=== PATIENT | male | born 1940 | race Hispanic/Latino ===

== ENCOUNTER 2017-07-02 16:30 | Inpatient (IN) | payer MEDICARE ==
--- NOTE | 2017-07-02 17:12 | Emergency Department Report ---
Chief Complaint: Dyspnea/Respdistress Stated Complaint: DIFFICULTY BREATHING Time Seen by Provider: 07/02/17 17:07 - HPI History of Present Illness: Patient with H/O CHF, HTN and DM presents to ED with worsening SOB and bilateral LE edema; scheduled for outpatient Cardiac catheterization tomorrow but feels too bad to go - ROS Review of Systems: Negative except for those stated in HPI - Exam Vital Signs: Vital Signs 07/02/17 16:38 Temperature 98.5 F Pulse Rate 98 H Respiratory 20 Rate Blood Pressure 115/73 O2 Sat by Pulse 97 Oximetry Physical Exam: NAD Bilateral LE pitting edema MSE screening note: Focused history and physical exam performed. Due to findings the following was ordered: CXR, EKG, blood work, urine Patient to be seen by provider in Main ED ED Disposition for MSE Condition: Stable
[2017-07-02 17:34] LABS: Basophils % (Auto) 0.8 % (0.0-1.8); Eosinophils % (Auto) 1.6 % (0.0-4.3); Hemoglobin 9.4 gm/dl (11.8-15.2); Mean Corpuscular HGB Conc 31 % (32-34); Mean Corpuscular Hemoglobin 26 pg (28-32); Mean Corpuscular Volume 84 fl (84-94); Platelet Count 386 K/mm3 (140-440); Red Blood Count 3.58 M/mm3 (3.65-5.03); Red Cell Distribution Width 18.5 % (13.2-15.2); White Blood Count 6.6 K/mm3 (4.5-11.0)
[2017-07-02 17:44] LABS: Anion Gap 17 mmol/L; BUN/Creatinine Ratio 34; Blood Urea Nitrogen 34 mg/dL (9-20); Calcium 8.8 mg/dL (8.4-10.2); Carbon Dioxide 24 mmol/L (22-30); Chloride 101.5 mmol/L (98-107); Glucose 279 mg/dL (75-100); Potassium 3.9 mmol/L (3.6-5.0); Sodium 139 mmol/L (137-145)
[2017-07-02 22:49] LABS: Bilirubin,Urine NEG (Negative); Blood,Urine NEG (Negative); Ketones,Urine NEG (Negative); Leukocyte Esterase,Urine NEG (Negative); Mucus,Urine FEW /HPF; Nitrite,Urine NEG (Negative)
[2017-07-02] MEDS ORDERED: LASIX IV ONE (23:17)
[2017-07-02] MEDS ORDERED: NITRO-BID 2% TP ONE (23:17)
--- NOTE | 2017-07-02 23:22 | Emergency Department Report ---
HPI - General Chief Complaint: Dyspnea/Respdistress Time Seen by Provider: 07/02/17 17:07 - HPI HPI: Room 25 The patient is a 77-year-old male presented with a chief complaint of shortness of breath and chest tightness. The patient states for the past 4:00 3 months visit intermittent worsening shortness of breath. The patient states his shortness of breath worsened this evening. Patient missed intermittent chest tightness since April and states it lasts several minutes. The patient states his last episode of chest night tightness occurred earlier today. Patient does admit to diaphoresis and nausea without vomiting associated with this chest tightness. The patient is scheduled to have a cardiac catheterization in the morning [facility]. The patient states last time he had a cardiac catheterization was approximately 15 years ago. Location: Lungs, chest Duration: Intermittent since April Quality: Tightness, shortness of breath Severity: Moderate Modifying factors: [see above] Context: [see above] Mode of transportation: [not driving] ED Past Medical Hx - Past Medical History Hx Hypertension: Yes Hx Congestive Heart Failure: Yes Hx Diabetes: Yes - Surgical History Additional Surgical History: left collar fx, herniorrhaphy, right knee surgery - Social History Smoking Status: Never Smoker Substance Use Type: None (denies illicit drug use) ED Review of Systems ROS: Stated complaint: DIFFICULTY BREATHING Other details as noted in HPI Constitutional: diaphoresis Respiratory: shortness of breath Cardiovascular: chest pain (tightness) Gastrointestinal: nausea. denies: vomiting Skin: other (bilateral lower extremity edema) Physical Exam - Physical Exam Vital Signs: Vital Signs 07/02/17 07/02/17 07/02/17 16:38 21:07 21:56 Temperature 98.5 F 97.6 F 98 F Pulse Rate 98 H 98 H 100 H Respiratory 20 18 24 Rate Blood Pressure 115/73 149/98 Blood Pressure 137/95 [Left] O2 Sat by Pulse 97 95 96 Oximetry Physical Exam: GENERAL: The patient is well-developed well-nourished male lying on stretcher not appearing to be in acute distress HEENT: Normocephalic. Atraumatic. Extraocular motions are intact. Patient has moist mucous membranes. NECK: Supple. Trachea midline CHEST/LUNGS: Coarse breath sounds at the bases. No crackles. There is no respiratory distress noted. HEART/CARDIOVASCULAR: Regular. There is no tachycardia. There is no gallop rub or murmur. ABDOMEN: Abdomen is soft, nontender. Patient has normal bowel sounds. There is no abdominal distention. SKIN: There is no rash. There is 2-3+ bilateral lower extremity pitting edema. There is no diaphoresis. NEURO: The patient is awake, alert, and oriented. The patient is cooperative. The patient has normal speech MUSCULOSKELETAL: There is no evidence of acute injury. ED Course Vital Signs 07/02/17 07/02/17 07/02/17 16:38 21:07 21:56 Temperature 98.5 F 97.6 F 98 F Pulse Rate 98 H 98 H 100 H Respiratory 20 18 24 Rate Blood Pressure 115/73 149/98 Blood Pressure 137/95 [Left] O2 Sat by Pulse 97 95 96 Oximetry ED Medical Decision Making - Lab Data Result diagrams: 07/02/17 17:04 07/02/17 17:04 Laboratory Tests 07/02/17 07/02/17 07/02/17 17:04 17:04 17:04 WBC 6.6 RBC 3.58 L Hgb 9.4 L Hct 30.0 L MCV 84 MCH 26 L MCHC 31 L RDW 18.5 H Plt Count 386 Lymph % (Auto) 15.4 [place] % (Auto) 10.7 H Eos % (Auto) 1.6 Baso % (Auto) 0.8 Lymph # 1.0 L [place] # 0.7 Eos # 0.1 Baso # 0.1 Seg Neutrophils % 71.5 H Seg Neutrophils # 4.7 Sodium 139 Potassium 3.9 Chloride 101.5 Carbon Dioxide 24 Anion Gap 17 BUN 34 H Creatinine 1.0 Estimated GFR > 60 BUN/Creatinine Ratio 34 Glucose 279 H Calcium 8.8 NT-Pro-B Natriuret Pep 4105 H Urine Color Urine Turbidity Urine pH Ur Specific [place] Urine Protein Urine Glucose (UA) Urine Ketones Urine Blood Urine Nitrite Urine Bilirubin Urine Urobilinogen Ur Leukocyte Esterase Urine WBC (Auto) Urine RBC (Auto) U Epithel Cells (Auto) Urine Mucus 07/02/17 22:24 WBC RBC Hgb Hct MCV MCH MCHC RDW Plt Count Lymph % (Auto) [place] % (Auto) Eos % (Auto) Baso % (Auto) Lymph # [place] # Eos # Baso # Seg Neutrophils % Seg Neutrophils # Sodium Potassium Chloride Carbon Dioxide Anion Gap BUN Creatinine Estimated GFR BUN/Creatinine Ratio Glucose Calcium NT-Pro-B Natriuret Pep Urine Color Yellow Urine Turbidity Clear Urine pH 5.0 Ur Specific [place] 1.028 Urine Protein 100 mg/dl Urine Glucose (UA) >=500 Urine Ketones Neg Urine Blood Neg Urine Nitrite Neg Urine Bilirubin Neg Urine Urobilinogen 2.0 Ur Leukocyte Esterase Neg Urine WBC (Auto) 4.0 Urine RBC (Auto) 3.0 U Epithel Cells (Auto) 1.0 Urine Mucus Few - EKG Data -: EKG Interpreted by Me EKG shows normal: sinus rhythm Rate: normal - EKG Data When compared to previous EKG there are: previous EKG unavailable Interpretation: other (no ischemic changes seen) - Radiology Data Radiology results: image reviewed (chest x-ray) interpreted by me: Chest x-ray-no focal infiltrates, no pneumothorax - Differential Diagnosis ACS, CHF exacerbation, pericarditis, GERD Critical care attestation.: If time is entered above; I have spent that time in minutes in the direct care of this critically ill patient, excluding procedure time. ED Disposition Clinical Impression: Chest tightness, Shortness of breath, CHF exacerbation Disposition: 09 OP ADMIT IP TO THIS HOSP Is pt being admited?: Yes Does the pt Need Aspirin: Yes Condition: Fair Referrals: PRIMARY CARE, [Primary Care Provider] - 3-5 Days Time of Disposition: 23:28 (hospitalist paged. Dr. Sapphire De Leon)
[2017-07-02] MEDS ORDERED: ASPIRIN PO ONE (23:23)
[2017-07-03] MEDS ORDERED: ZOFRAN IV PRN (00:35)
[2017-07-03] MEDS ORDERED: DULCOLAX PR PRN (00:35)
[2017-07-03] MEDS ORDERED: MILK OF MAGNESIA PO PRN (00:35)
[2017-07-03] MEDS ORDERED: TYLENOL PO PRN (00:35)
[2017-07-03] MEDS ORDERED: MORPHINE IV PRN (00:35)
--- NOTE | 2017-07-03 00:42 | History and Physical Report ---
History of Present Illness Date of examination: 07/03/17 History of present illness: 77-year-old man with a history of hypertension, diabetes, CHF comes emergency room with complaints of shortness of breath, dyspnea on exertion, orthopnea and lower extremity edema 4 days. Also complaining of chest pain, located in the epigastric area, described as tightness, intermittent in nature, every 30 minutes, intensity 5/10, no radiation, cannot identify exacerbating or relieving factors. Patient is scheduled for cardiac cath today Review Of Systems: Constitutional: no weight loss Ears, eyes, nose, mouth and throat: no nasal congestion, no nasal discharge, no sinus pressure, blurry vision, diplopia Neck: No neck pain or rigidity. Cardiovascular: no palpitations Respiratory: No cough Gastrointestinal:no abdominal pain, hematochezia Genitourinary : no dysuria, frequency , hematuria Musculoskeletal: no muscle ache Integumentary: no rash, no pruritis Neurological: no parathesias, focal weakness Endocrine: no cold or heat intolerance, no polyuria or polydipsia Hematologic/Lymphatic: no easy bruising, no easy bleeding, no gland swelling Allergic/Immunologic: no urticaria, no angioedema. PAST MEDICAL HISTORY:hypertension, diabetes, CHF PAST SURGICAL HISTORY: Hernia repair, knee surgery FAMILY HISTORY: Hypertension SOCIAL HISTORY: Denies alcohol, tobacco, drugs Medications and Allergies Allergies Allergy/AdvReac Type Severity Reaction Status Date / Time No Known Allergies Allergy Unverified 07/02/17 16:42 Home Medications Medication Instructions Recorded Confirmed Last Taken Type Aspirin BABY CHEW TAB 1 tab PO DAILY 07/03/17 07/03/17 Unknown History AtorvaSTATin 40 mg PO DAILY 07/03/17 07/03/17 Unknown History Cholecalciferol Vit D3 2,000 unit PO DAILY 07/03/17 07/03/17 Unknown History Finasteride 5 mg PO DAILY 07/03/17 07/03/17 Unknown History Glipizide 10 mg PO BID 07/03/17 07/03/17 Unknown History Lisinopril 10 mg PO DAILY 07/03/17 07/03/17 Unknown History Metoprolol Xl 25 mg PO DAILY 07/03/17 07/03/17 Unknown History Potassium Chloride 20 meq PO DAILY 07/03/17 07/03/17 Unknown History Zantac 150 MG TAB 1 tab PO BID 07/03/17 07/03/17 Unknown History metFORMIN XR 1,000 mg PO BID 07/03/17 07/03/17 Unknown History Furosemide [Lasix] 20 mg PO QDAY #30 tablet 07/07/17 Unknown Rx Potassium Chloride 5 meq PO QDAY #15 capsule.er 07/07/17 Unknown Rx Exam - Physical Exam Narrative exam: Gen. appearance: Patient lying in bed in no acute distress HEENT: Normocephalic/atraumatic, pupils equal round reactive to light, extra alkaline movement intact, no scleral icterus, no JVD or thyromegaly or nodule, neck is supple, mucous membrane moist, no erythema or exudate Heart: S1-S2, regular rate and rhythm Lungs: Crackles bilateral breathing comfortable Abdomen: Positive bowel sounds, nontender, nondistended, no organomegaly Extremities: + edema up to knees, cyanosis, clubbing Neuro:: Oriented 3 , cranial nerves II-12 intact, speech, motor intact Skin: No rash, nodules, warm dry - Constitutional Vitals: Temp Pulse Resp BP Pulse Ox 98 F 95 H 20 140/86 100 07/02/17 21:56 07/02/17 23:30 07/02/17 23:49 07/02/17 23:30 07/02/17 23:49 Results - Labs CBC & Chem 7: 07/04/17 07:05 07/06/17 05:34 Labs: Abnormal lab results 07/02/17 07/02/17 07/02/17 Range/Units 17:04 17:04 17:04 RBC 3.58 L (3.65-5.03) M/mm3 Hgb 9.4 L (11.8-15.2) gm/dl Hct 30.0 L (35.5-45.6) % MCH 26 L (28-32) pg MCHC 31 L (32-34) % RDW 18.5 H (13.2-15.2) % [place] % (Auto) 10.7 H (0.0-7.3) % Lymph # 1.0 L (1.2-5.4) K/mm3 Seg Neutrophils % 71.5 H (40.0-70.0) % BUN 34 H (9-20) mg/dL Glucose 279 H (75-100) mg/dL NT-Pro-B Natriuret Pep 4105 H (0-900) pg/mL - Imaging and Cardiology EKG: image reviewed Chest x-ray: image reviewed Assessment and Plan Assessment Acute on chronic heart failure, probably diastolic Chest pain Hypertension Diabetes Plan Admit to medicine Start IV Lasix Beta ronald, DINA inhibitor, aspirin Check cardiac enzymes, echo, consult cardiology. Monitor I's and O's, daily weights Patient scheduled for cardiac cath today check initiate insulin signs scale DVT prophylaxis
[2017-07-03 01:25] LABS: Creatine Kinase MB 2.3 ng/mL (0.0-4.0)
[2017-07-03 01:26] LABS: Creatine Kinase 62 units/L (55-170)
[2017-07-03] MEDS ORDERED: D50W (25GM) Vial IV PRN (04:56)
[2017-07-03] MEDS: LASIX IV SCH ×2 (05:44→17:44)
[2017-07-03 06:42] LABS: INR 1.06 (0.87-1.13)
[2017-07-03 06:43] LABS: Partial Thromboplastin Time 31.5 Sec. (24.2-36.6)
[2017-07-03 06:57] LABS: Creatine Kinase MB 2.3 ng/mL (0.0-4.0)
[2017-07-03] MEDS ORDERED: NACL 0.9% 500 ML IV SCH (07:00)
[2017-07-03] MEDS ORDERED: HEPARIN 10,000 UNITS/10 ML ONE (07:35)
[2017-07-03] MEDS ORDERED: CALAN ONE (07:35)
[2017-07-03] MEDS ORDERED: HEPARIN/NS 5000 UNIT/500ML(CATH LAB) 1,000 ML IR ONE (07:35)
[2017-07-03] MEDS ORDERED: VERSED ONE (07:35)
[2017-07-03] MEDS ORDERED: XYLOCAINE 2% INFILTRATI ONE (07:35)
[2017-07-03] MEDS ORDERED: SUBLIMAZE ONE (07:36)
[2017-07-03] MEDS ORDERED: NITROGLYCERIN SYRINGE 3 ML ONE (07:38)
--- NOTE | 2017-07-03 08:05 | Prelim Cardiac Cath Report ---
Preliminary Cath Report - Other Findings Estimated blood loss: none Dominance: right Estimated Ejection Fraction: 40 LV Contractility: mild global HK EF 40% Coronary Anatomy: %0% mid LAD stenosis otherwise no significant disease in Right dominant system LVEDP elevated 28 mmHg. EF 40% global hypokinesis Plan Pulm evaluation for shortness of breath Medical therapy for non-ischemic CMP, HTN. Post Diagnosis: Non-obstructive CAD, Non-ischemic CMP. Recommendations: medical therapy (recommend pulm evaluation)
[2017-07-03] MEDS: NOVOLOG SUB-Q SCH ×4 (09:45→22:30)
[2017-07-03] MEDS ORDERED: COREG PO SCH (10:00)
[2017-07-03] MEDS ORDERED: ZESTRIL PO SCH (10:00)
[2017-07-03] MEDS: HALFPRIN EC PO SCH (10:31)
[2017-07-03] MEDS: LOVENOX SUB-Q SCH (10:31)
[2017-07-03] MEDS: VITAMIN D3 PO SCH (10:32)
[2017-07-03] MEDS: PROSCAR PO SCH (10:33)
[2017-07-03] MEDS: PEPCID PO SCH ×2 (10:33→22:35)
[2017-07-03] MEDS: ZESTRIL PO SCH (10:34)
[2017-07-03] MEDS: TOPROL XL PO SCH (10:34)
--- NOTE | 2017-07-03 11:21 | XRay Report ---
CHEST TWO VIEWS: 07/02/17 16:30:00 CLINICAL: Shortness of breath. COMPARISON: None FINDINGS: Cardiomegaly and mild central vascular congestion. Mild nonspecific prominent bilateral predominantly lower lobe interstitial opacities. Mild blunting of the costophrenic angles. The bones and soft tissues are normal. IMPRESSION: CHF with mild interstitial pulmonary edema until proven otherwise.
[2017-07-03] MEDS: DUONEB *Not for PRN Use IH SCH ×2 (17:32→20:26)
--- NOTE | 2017-07-03 17:54 | Event Note ---
Date: 07/03/17 Patient was seen and evaluated, had episode of shortness of breath that resolved. By the time I saw him he was stable. Cardiac cath was done and negative for obstructive coronary artery disease. Continue management per H&P.
--- NOTE | 2017-07-03 19:10 | Event Note ---
Date: 07/03/[address] Diaz thank you for asking us to participate in the care of this patient. Full consultation dictated.Consultation dictation number: [id number]. Impression. 1. Acute exacerbation of CHF 2. Shortness of breath 3. Chest tightness. 4. Hypertension 5.. Diabetes. PLAN: 1.ABGs on room air. 2.O2 2 litres via nasal canula. 3.Albuterol/atrovent aerosol treatments q 6 hours. 4.Continue S/C Lovenox. 5. Venous doppler studies of legs. 6. If cardiac work up is negative, May get V/Q scan 7. PFTs as out patient. )
[2017-07-04] MEDS ORDERED: PROVENTIL IH PRN (00:21)
[2017-07-04] MEDS: LASIX IV SCH ×2 (05:21→17:29)
[2017-07-04 07:40] LABS: Basophils % (Auto) 1.1 % (0.0-1.8); Hematocrit 30.5 % (35.5-45.6); Hemoglobin 9.9 gm/dl (11.8-15.2); Mean Corpuscular HGB Conc 32 % (32-34); Mean Corpuscular Hemoglobin 27 pg (28-32); Mean Corpuscular Volume 84 fl (84-94); Platelet Count 415 K/mm3 (140-440); Red Blood Count 3.64 M/mm3 (3.65-5.03); Red Cell Distribution Width 18.1 % (13.2-15.2); White Blood Count 6.6 K/mm3 (4.5-11.0)
[2017-07-04 07:51] LABS: Anion Gap 18 mmol/L; BUN/Creatinine Ratio 29; Blood Urea Nitrogen 26 mg/dL (9-20); Calcium 8.5 mg/dL (8.4-10.2); Carbon Dioxide 30 mmol/L (22-30); Glucose 264 mg/dL (75-100); Potassium 3.6 mmol/L (3.6-5.0); Sodium 143 mmol/L (137-145)
[2017-07-04] MEDS: DUONEB *Not for PRN Use IH SCH (08:27)
[2017-07-04] MEDS: ZESTRIL PO SCH (09:51)
[2017-07-04] MEDS: HALFPRIN EC PO SCH (09:51)
[2017-07-04] MEDS: PROSCAR PO SCH (09:51)
[2017-07-04] MEDS: LOVENOX SUB-Q SCH (09:52)
[2017-07-04] MEDS: TOPROL XL PO SCH (09:52)
[2017-07-04] MEDS: PEPCID PO SCH ×2 (09:52→22:26)
[2017-07-04] MEDS: VITAMIN D3 PO SCH (09:53)
[2017-07-04] MEDS: NOVOLOG SUB-Q SCH ×4 (09:53→22:25)
--- NOTE | 2017-07-04 12:04 | Progress Note ---
Assessment and Plan Acute systolic heart failure [facility]: no significant CAD, EF 40% Hypertension Diabetes mellitus Continue medical therapy for systolic heart failure. Sodium/fluid restriction. Daily weight. Subjective Date of service: 07/04/17 Interval history: Shortness of breath continues. Objective Vital Signs Temp Pulse Pulse Resp Resp BP Pulse Ox 07/04/17 11:44 95 07/04/17 09:52 87 114/74 07/04/17 09:51 87 114/74 07/04/17 08:29 95 07/04/17 08:28 86 16 07/04/17 04:44 97.5 F L 95 H 20 122/84 89 07/04/17 00:43 97.0 F L 92 H 24 132/88 89 07/03/17 20:35 91 H 16 07/03/17 20:29 97 07/03/17 20:28 91 H 16 07/03/17 20:11 98.2 F 84 20 126/84 98 07/03/17 20:00 103 H 07/03/17 17:17 98.6 F 90 18 125/82 96 07/03/17 12:04 98.3 F 91 H 18 132/86 99 - Physical Examination General: No Apparent Distress Cardiac: Positive: Reg Rate and Rhythm - Labs and Meds CBC 07/04/17 Range/Units 07:05 WBC 6.6 (4.5-11.0) K/mm3 RBC 3.64 L (3.65-5.03) M/mm3 Hgb 9.9 L (11.8-15.2) gm/dl Hct 30.5 L (35.5-45.6) % Plt Count 415 (140-440) K/mm3 Lymph # 1.4 (1.2-5.4) K/mm3 [place] # 0.9 H (0.0-0.8) K/mm3 Eos # 0.1 (0.0-0.4) K/mm3 Baso # 0.1 (0.0-0.1) K/mm3 Comprehensive Metabolic Panel 07/04/17 Range/Units 07:05 Sodium 143 (137-145) mmol/L Potassium 3.6 (3.6-5.0) mmol/L Chloride 99.0 (98-107) mmol/L Carbon Dioxide 30 (22-30) mmol/L BUN 26 H (9-20) mg/dL Creatinine 0.9 (0.8-1.5) mg/dL Glucose 264 H (75-100) mg/dL Calcium 8.5 (8.4-10.2) mg/dL - Imaging and Cardiology EKG: image reviewed
[2017-07-04] MEDS ORDERED: NON-FORMULARY (Glipizide 10 MG) PO SCH (12:15)
[2017-07-04] MEDS: GLUCOTROL PO SCH ×2 (13:07→17:30)
[2017-07-04] MEDS ORDERED: ZAROXOLYN PO ONE (14:00)
[2017-07-04] MEDS ORDERED: K-DUR PO ONE (14:00)
--- NOTE | 2017-07-04 15:51 | Progress Note ---
Assessment and Plan Assessment and plan: Acute on chronic CHF exacerbation -Cardiac cath was done, clean coronaries, ejection fraction of 40% -Patient is still fluid overloaded, continue IV diuresis, continue CHF medications, add torsemide - Cardiology consult appreciated DM type II uncontrolled - Continue on sliding scale insulin, blood glucose is still uncontrolled with home dose of glipizide Hypertension - well controlled with current regimen Shortness of breath - Pulmonary consulted - Recommended VQ scan if cardiac workup is negative DVT prophylaxis - Heparin Disposition - Continue inpatient care. History Interval history: Patient was seen and evaluated this morning, shortness of breath is getting better. Hospitalist Physical - Physical exam Narrative exam: Not in cardiopulmonary distress. The patient appeared well nourished and normally developed. Vital signs as documented. Head exam is unremarkable. No scleral icterus . Neck is without jugular venous distension, thyromegaly, or carotid bruits. Lungs are clear to auscultation. Cardiac exam reveals regular rate and Rhythm. First and second heart sounds normal. No murmurs, rubs or gallops. Abdominal exam reveals normal bowel sounds, no masses, no organomegaly and no aortic enlargement. Extremities +2 pedal and pretibial edema. SCHEDULING MANAGER: Alert and oriented 3. No focal weakness. - Constitutional Vitals: Temp Pulse Resp BP Pulse Ox 98.6 F 98 H 18 135/101 97 07/04/17 12:13 07/04/17 12:13 07/04/17 12:13 07/04/17 12:13 07/04/17 12:13 Results - Labs CBC & Chem 7: 07/04/17 07:05 07/04/17 07:05 Labs: Laboratory Last Values WBC 6.6 K/mm3 (4.5-11.0) 07/04/17 07:05 RBC 3.64 M/mm3 (3.65-5.03) L 07/04/17 07:05 Hgb 9.9 gm/dl (11.8-15.2) L 07/04/17 07:05 Hct 30.5 % (35.5-45.6) L 07/04/17 07:05 MCV 84 fl (84-94) 07/04/17 07:05 MCH 27 pg (28-32) L 07/04/17 07:05 MCHC 32 % (32-34) 07/04/17 07:05 RDW 18.1 % (13.2-15.2) H 07/04/17 07:05 Plt Count 415 K/mm3 (140-440) 07/04/17 07:05 Lymph % (Auto) 20.7 % (13.4-35.0) 07/04/17 07:05 [place] % (Auto) 13.0 % (0.0-7.3) H 07/04/17 07:05 Eos % (Auto) 2.0 % (0.0-4.3) 07/04/17 07:05 Baso % (Auto) 1.1 % (0.0-1.8) 07/04/17 07:05 Lymph # 1.4 K/mm3 (1.2-5.4) 07/04/17 07:05 [place] # 0.9 K/mm3 (0.0-0.8) H 07/04/17 07:05 Eos # 0.1 K/mm3 (0.0-0.4) 07/04/17 07:05 Baso # 0.1 K/mm3 (0.0-0.1) 07/04/17 07:05 Seg Neutrophils % 63.2 % (40.0-70.0) 07/04/17 07:05 Seg Neutrophils # 4.2 K/mm3 (1.8-7.7) 07/04/17 07:05 PT 14.3 Sec. (12.2-14.9) 07/03/17 06:16 INR 1.06 (0.87-1.13) 07/03/17 06:16 APTT 31.5 Sec. (24.2-36.6) 07/03/17 06:16 Sodium 143 mmol/L (137-145) 07/04/17 07:05 Potassium 3.6 mmol/L (3.6-5.0) 07/04/17 07:05 Chloride 99.0 mmol/L (98-107) 07/04/17 07:05 Carbon Dioxide 30 mmol/L (22-30) 07/04/17 07:05 Anion Gap 18 mmol/L 07/04/17 07:05 BUN 26 mg/dL (9-20) H 07/04/17 07:05 Creatinine 0.9 mg/dL (0.8-1.5) 07/04/17 07:05 Estimated GFR > 60 ml/min 07/04/17 07:05 BUN/Creatinine Ratio 29 % 07/04/17 07:05 Glucose 264 mg/dL (75-100) H 07/04/17 07:05 POC Glucose 306 (70-105) H 07/04/17 12:16 Calcium 8.5 mg/dL (8.4-10.2) 07/04/17 07:05 Total Creatine Kinase 59 units/L (55-170) 07/03/17 06:16 CK-MB (CK-2) 2.3 ng/mL (0.0-4.0) 07/03/17 06:16 CK-MB (CK-2) Rel Index 3.8 (0-4) 07/03/17 06:16 Troponin T 0.013 ng/mL (0.00-0.029) 07/03/17 06:16 NT-Pro-B Natriuret Pep 4105 pg/mL (0-900) H 07/02/17 17:04 Urine Color Yellow (Yellow) 07/02/17 22:24 Urine Turbidity Clear (Clear) 07/02/17 22:24 Urine pH 5.0 (5.0-7.0) 07/02/17 22:24 Ur Specific [place] 1.028 (1.003-1.030) 07/02/17 22:24 Urine Protein 100 mg/dl mg/dL (Negative) 07/02/17 22:24 Urine Glucose (UA) >=500 mg/dL (Negative) 07/02/17 22:24 Urine Ketones Neg mg/dL (Negative) 07/02/17 22:24 Urine Blood Neg (Negative) 07/02/17 22:24 Urine Nitrite Neg (Negative) 07/02/17 22:24 Urine Bilirubin Neg (Negative) 07/02/17 22:24 Urine Urobilinogen 2.0 mg/dL (<2.0) 07/02/17 22:24 Ur Leukocyte Esterase Neg (Negative) 07/02/17 22:24 Urine WBC (Auto) 4.0 /HPF (0.0-6.0) 07/02/17 22:24 Urine RBC (Auto) 3.0 /HPF (0.0-6.0) 07/02/17 22:24 U Epithel Cells (Auto) 1.0 /HPF (0-13.0) 07/02/17 22:24 Urine Mucus Few /HPF 07/02/17 22:24
--- NOTE | 2017-07-04 21:42 | Progress Note ---
Assessment and Plan Patient alert, awake. Resting on room air. No acute respiratory distress.O2 saturation 98*%. - Patient Problems (1) CHF exacerbation Current Visit: Yes Status: Acute Plan to address problem: Management as per cardiology. (2) Chest tightness Current Visit: Yes Status: Acute Plan to address problem: No complaint of chest pain today. (3) Shortness of breath Current Visit: Yes Status: Acute Plan to address problem: Likely from CHF. Patient says shortness of breath somewhat better today. Patient is on lasix and zestaril. (4) Hypertension Current Visit: Yes Status: Acute Plan to address problem: Management as per primary care. (5) Diabetes Current Visit: Yes Status: Acute Plan to address problem: Management as per primary care. Subjective Date of service: 07/04/17 Interval history: Patient alert, awake. Resting on room air. No acute respiratory distress.O2 saturation 98*%. Objective Vital Signs - 12hr 07/04/17 07/04/17 07/04/17 09:51 09:52 11:44 Temperature Pulse Rate 87 87 Respiratory Rate Blood Pressure 114/74 114/74 O2 Sat by Pulse 95 Oximetry 07/04/17 07/04/17 12:13 16:59 Temperature 98.6 F 98.3 F Pulse Rate 98 H 98 H Respiratory 18 18 Rate Blood Pressure 135/101 140/96 O2 Sat by Pulse 97 98 Oximetry Constitutional: no acute distress, alert Eyes: non-icteric ENT: oropharynx moist Neck: supple, no lymphadenopathy Ascultation: Bilateral: rales Cardiovascular: regular rate and rhythm Gastrointestinal: normoactive bowel sounds, soft, non-tender Integumentary: normal Extremities: no cyanosis, other (Trace edema.No calf tenderness.) Neurologic: normal mental status, non-focal exam, pupils equal and round, CN II- XII normal Psychiatric: depressed CBC and BMP: 07/04/17 07:05 07/04/17 07:05 ABG, PT/INR, D-dimer: PT/INR, D-dimer PT 14.3 Sec. (12.2-14.9) 07/03/17 06:16 INR 1.06 (0.87-1.13) 07/03/17 06:16 Abnormal lab findings: Abnormal Labs 07/02/17 07/02/17 07/02/17 17:04 17:04 17:04 RBC 3.58 L Hgb 9.4 L Hct 30.0 L MCH 26 L MCHC 31 L RDW 18.5 H [place] % (Auto) 10.7 H Lymph # 1.0 L [place] # Seg Neutrophils % 71.5 H BUN 34 H Glucose 279 H POC Glucose NT-Pro-B Natriuret Pep 4105 H 07/03/17 07/03/17 07/03/17 07:15 09:21 12:08 RBC Hgb Hct MCH MCHC RDW [place] % (Auto) Lymph # [place] # Seg Neutrophils % BUN Glucose POC Glucose 228 H 271 H 217 H NT-Pro-B Natriuret Pep 07/03/17 07/03/17 07/04/17 17:22 21:50 07:05 RBC 3.64 L Hgb 9.9 L Hct 30.5 L MCH 27 L MCHC RDW 18.1 H [place] % (Auto) 13.0 H Lymph # [place] # 0.9 H Seg Neutrophils % BUN Glucose POC Glucose 178 H 266 H NT-Pro-B Natriuret Pep 07/04/17 07/04/17 07/04/17 07:05 08:01 12:16 RBC Hgb Hct MCH MCHC RDW [place] % (Auto) Lymph # [place] # Seg Neutrophils % BUN 26 H Glucose 264 H POC Glucose 259 H 306 H NT-Pro-B Natriuret Pep 07/04/17 17:07 RBC Hgb Hct MCH MCHC RDW [place] % (Auto) Lymph # [place] # Seg Neutrophils % BUN Glucose POC Glucose 267 H NT-Pro-B Natriuret Pep Chest x-ray: report reviewed (CHF and Mild interstitial edema.), image reviewed
--- NOTE | 2017-07-04 23:53 | Consultation ---
CONSULTED BY: Chico Diaz MD PLANT ANATOMIST: Richi Marti MD REASON FOR CONSULTATION: Acute exacerbation of shortness of breath, acute exacerbation of CHF and chest tightness. Dr. Diaz, thank you for asking us to participate in the care of this patient. HISTORY OF PRESENT ILLNESS: This is a 77-year-old white male with a history of hypertension, diabetes, and CHF, came to the Emergency Room with a complaint of shortness of breath and orthopnea and lower extremity edema. The patient is also complaining of chest tightness located in the epigastric area and also on the lower chest. The patient denied any fever, chills or nasal congestion or sore throat. The patient denies any history of smoking, alcohol or drug abuse. ALLERGIES: THE PATIENT HAS NO KNOWN DRUG ALLERGIES. He also complained some diaphoresis and nausea, but no vomiting. The patient has a history of cardiac catheterization in the past about 15 years ago and Cardiology is consulted. According to the Emergency Room physician note, they are planning to do the cardiac catheterization soon. The patient's chest x-ray reported CHF with mild interstitial pulmonary edema. The patient is diabetic. His blood sugar is 228. The patient's CPK is not high. Total CPK is 59. CK-MB is 2.3. The patient's CBC: WBC 6.6, hemoglobin 9.4, hematocrit 30 and platelet count is 386,000. The patient's BMP: Sodium 139, potassium 3.9, BUN 34, creatinine 1, glucose 279 and BNP is 4105. PHYSICAL EXAMINATION: GENERAL: The patient resting on room air, O2 saturation 97%, in no acute respiratory distress at this time. VITAL SIGNS: Temperature 98.2, pulse 84, respirations 20 and blood pressure is 126/84, O2 saturation 98% on room air. HEENT: Pupils are equal and reactive. Extraocular muscles are intact. Throat, slight inflammation, no exudate. NECK: Supple. CARDIOVASCULAR: Regular rate and rhythm. LUNGS: Few bilateral rales. ABDOMEN: Soft, bowel sounds present. No CVA tenderness. MUSCULOSKELETAL: There is edema, no calf tenderness. NEUROLOGIC: DTR equal and reactive. Babinski negative. No focal neurological deficits. IMPRESSION: 1. Acute exacerbation of congestive heart failure. 2. Shortness of breath. 3. Chest tightness. 4. Hypertension. 5. Diabetes mellitus. PLAN: 1. ABGs on room air. 2. O2 2 liters via nasal cannula. 3. Albuterol and Atrovent aerosol treatments q. 6 hours. 4. Continue subcutaneous Lovenox. 5. Venous Doppler studies of the legs. If cardiac workup is negative, may get V/Q scan. 6. PFTs as an outpatient. I want to thank Dr. Diaz for this consultation. I will follow the patient with him. JOB# [id number] RSM/NTS
[2017-07-05] MEDS: LASIX IV SCH ×2 (05:36→18:26)
[2017-07-05 07:22] LABS: Anion Gap 19 mmol/L; BUN/Creatinine Ratio 28; Blood Urea Nitrogen 25 mg/dL (9-20); Calcium 8.7 mg/dL (8.4-10.2); Carbon Dioxide 29 mmol/L (22-30); Chloride 94.7 mmol/L (98-107); Glucose 307 mg/dL (75-100); Potassium 3.2 mmol/L (3.6-5.0); Sodium 139 mmol/L (137-145)
[2017-07-05] MEDS ORDERED: K-DUR PO NR (09:30)
[2017-07-05] MEDS: VITAMIN D3 PO SCH (10:05)
[2017-07-05] MEDS: ZESTRIL PO SCH (10:05)
[2017-07-05] MEDS: PEPCID PO SCH ×2 (10:05→23:13)
[2017-07-05] MEDS: HALFPRIN EC PO SCH (10:06)
[2017-07-05] MEDS: GLUCOTROL PO SCH ×2 (10:06→17:26)
[2017-07-05] MEDS: LOVENOX SUB-Q SCH (10:07)
[2017-07-05] MEDS: TOPROL XL PO SCH (10:07)
[2017-07-05] MEDS: PROSCAR PO SCH (10:07)
--- NOTE | 2017-07-05 11:18 | Progress Note ---
Assessment and Plan Acute CHF exacerbation Chest Pain SOB HTN DM II - supplemental oxygen to keep sats > 90% - CMOP optimization per cardiology (on DINA-I and lasix) - continue glycemic control with SSI - adjust anti-HTNsives for target BP </= 120/790 - GI & VTE prophylaxis - improving Subjective Date of service: 07/05/17 Principal diagnosis: Acute Hypoxemic Resp Failure; Acute CHF exacerbation Interval history: Patient is seen today for: Acute Hypoxemic Resp Failure; Acute CHF exacerbation Seen and examined at bedside; 24hour events reviewed; nursing and respiratory care staff consulted; no adverse overnight events reported to me; resting peacefully in bed; denies acute chest pains or increased SOB; NO N/V/F/C Objective Vital Signs - 12hr 07/05/17 07/05/17 00:39 05:41 Temperature 97.9 F 98.1 F Pulse Rate 92 H 90 Respiratory 20 20 Rate Blood Pressure 112/70 124/81 O2 Sat by Pulse 95 97 Oximetry Constitutional: no acute distress, alert Eyes: non-icteric ENT: oropharynx moist Neck: supple, no lymphadenopathy, other (No thyromegaly) Effort: mildly labored Ascultation: Bilateral: rales Percussion: Bilateral: not dull Cardiovascular: regular rate and rhythm, murmur noted, other (No rubs) Gastrointestinal: normoactive bowel sounds, soft, non-tender, other (No HSM) Integumentary: normal Extremities: no cyanosis, pulses normal, no ischemia or petechiae, edema Neurologic: normal mental status, non-focal exam, pupils equal and round, CN II- XII normal Psychiatric: depressed CBC and BMP: 07/04/17 07:05 07/06/17 05:34 ABG, PT/INR, D-dimer: PT/INR, D-dimer PT 14.3 Sec. (12.2-14.9) 07/03/17 06:16 INR 1.06 (0.87-1.13) 07/03/17 06:16 Abnormal lab findings: Abnormal Labs 07/02/17 07/02/17 07/02/17 17:04 17:04 17:04 RBC 3.58 L Hgb 9.4 L Hct 30.0 L MCH 26 L MCHC 31 L RDW 18.5 H [place] % (Auto) 10.7 H Lymph # 1.0 L [place] # Seg Neutrophils % 71.5 H Potassium Chloride BUN 34 H Glucose 279 H POC Glucose NT-Pro-B Natriuret Pep 4105 H 07/03/17 07/03/17 07/03/17 07:15 09:21 12:08 RBC Hgb Hct MCH MCHC RDW [place] % (Auto) Lymph # [place] # Seg Neutrophils % Potassium Chloride BUN Glucose POC Glucose 228 H 271 H 217 H NT-Pro-B Natriuret Pep 07/03/17 07/03/17 07/04/17 17:22 21:50 07:05 RBC 3.64 L Hgb 9.9 L Hct 30.5 L MCH 27 L MCHC RDW 18.1 H [place] % (Auto) 13.0 H Lymph # [place] # 0.9 H Seg Neutrophils % Potassium Chloride BUN Glucose POC Glucose 178 H 266 H NT-Pro-B Natriuret Pep 07/04/17 07/04/17 07/04/17 07:05 08:01 12:16 RBC Hgb Hct MCH MCHC RDW [place] % (Auto) Lymph # [place] # Seg Neutrophils % Potassium Chloride BUN 26 H Glucose 264 H POC Glucose 259 H 306 H NT-Pro-B Natriuret Pep 07/04/17 07/04/17 07/05/17 17:07 22:01 06:04 RBC Hgb Hct MCH MCHC RDW [place] % (Auto) Lymph # [place] # Seg Neutrophils % Potassium 3.2 L Chlor[place] 94.7 L BUN 25 H Glucose 307 H POC Glucose 267 H 239 H NT-Pro-B Natriuret Pep 07/05/17 08:33 RBC Hgb Hct MCH MCHC RDW [place] % (Auto) Lymph # [place] # Seg Neutrophils % Potassium Chloride BUN Glucose POC Glucose 252 H NT-Pro-B Natriuret Pep Chest x-ray: image reviewed Allied health notes reviewed: nursing
[2017-07-05] MEDS: NOVOLOG SUB-Q SCH ×3 (11:50→23:14)
--- NOTE | 2017-07-05 16:23 | Progress Note ---
Assessment and Plan Acute systolic heart failure [facility]: no significant CAD, EF 40% Hypertension Diabetes mellitus Continue medical therapy for systolic heart failure. Sodium/fluid restriction. Daily weight. Subjective Date of service: 07/05/17 Interval history: Patient reports he is feeling better. He denies shortness of breath. Objective Vital Signs Temp Pulse Resp BP Pulse Ox 07/05/17 05:41 98.1 F 90 20 124/81 97 07/05/17 00:39 97.9 F 92 H 20 112/70 95 07/04/17 16:59 98.3 F 98 H 18 140/96 98 - Physical Examination General: No Apparent Distress Cardiac: Positive: Reg Rate and Rhythm - Labs and Meds Comprehensive Metabolic Panel 07/05/17 Range/Units 06:04 Sodium 139 (137-145) mmol/L Potassium 3.2 L (3.6-5.0) mmol/L Chloride 94.7 L (98-107) mmol/L Carbon Dioxide 29 (22-30) mmol/L BUN 25 H (9-20) mg/dL Creatinine 0.9 (0.8-1.5) mg/dL Glucose 307 H (75-100) mg/dL Calcium 8.7 (8.4-10.2) mg/dL - Imaging and Cardiology EKG: image reviewed
--- NOTE | 2017-07-05 18:36 | Progress Note ---
Assessment and Plan Assessment and plan: Acute on chronic CHF exacerbation -Cardiac cath was done, clean coronaries, ejection fraction of 40% -Patient is still fluid overloaded, continue IV diuresis, continue CHF medications, add torsemide - Cardiology consult appreciated DM type II uncontrolled - Continue on sliding scale insulin, blood glucose is still uncontrolled with home dose of glipizide Hypertension - well controlled with current regimen Shortness of breath - Pulmonary consulted DVT prophylaxis - Heparin Disposition - Continue inpatient care. History Interval history: Patient was seen and evaluated this morning, shortness of breath subsided, . Hospitalist Physical - Physical exam Narrative exam: Not in cardiopulmonary distress. The patient appeared well nourished and normally developed. Vital signs as documented. Head exam is unremarkable. No scleral icterus . Neck is without jugular venous distension, thyromegaly, or carotid bruits. Lungs are clear to auscultation. Cardiac exam reveals regular rate and Rhythm. First and second heart sounds normal. No murmurs, rubs or gallops. Abdominal exam reveals normal bowel sounds, no masses, no organomegaly and no aortic enlargement. Extremities +2 pedal and pretibial edema. VERTICA ARCHITECT: Alert and oriented 3. No focal weakness. - Constitutional Vitals: Temp Pulse Resp BP Pulse Ox 98.1 F 90 20 124/81 97 07/05/17 05:41 07/05/17 05:41 07/05/17 05:41 07/05/17 05:41 07/05/17 05:41 Results - Labs CBC & Chem 7: 07/04/17 07:05 07/05/17 06:04 Labs: Laboratory Last Values WBC 6.6 K/mm3 (4.5-11.0) 07/04/17 07:05 RBC 3.64 M/mm3 (3.65-5.03) L 07/04/17 07:05 Hgb 9.9 gm/dl (11.8-15.2) L 07/04/17 07:05 Hct 30.5 % (35.5-45.6) L 07/04/17 07:05 MCV 84 fl (84-94) 07/04/17 07:05 MCH 27 pg (28-32) L 07/04/17 07:05 MCHC 32 % (32-34) 07/04/17 07:05 RDW 18.1 % (13.2-15.2) H 07/04/17 07:05 Plt Count 415 K/mm3 (140-440) 07/04/17 07:05 Lymph % (Auto) 20.7 % (13.4-35.0) 07/04/17 07:05 [place] % (Auto) 13.0 % (0.0-7.3) H 07/04/17 07:05 Eos % (Auto) 2.0 % (0.0-4.3) 07/04/17 07:05 Baso % (Auto) 1.1 % (0.0-1.8) 07/04/17 07:05 Lymph # 1.4 K/mm3 (1.2-5.4) 07/04/17 07:05 [place] # 0.9 K/mm3 (0.0-0.8) H 07/04/17 07:05 Eos # 0.1 K/mm3 (0.0-0.4) 07/04/17 07:05 Baso # 0.1 K/mm3 (0.0-0.1) 07/04/17 07:05 Seg Neutrophils % 63.2 % (40.0-70.0) 07/04/17 07:05 Seg Neutrophils # 4.2 K/mm3 (1.8-7.7) 07/04/17 07:05 PT 14.3 Sec. (12.2-14.9) 07/03/17 06:16 INR 1.06 (0.87-1.13) 07/03/17 06:16 APTT 31.5 Sec. (24.2-36.6) 07/03/17 06:16 Sodium 139 mmol/L (137-145) 07/05/17 06:04 Potassium 3.2 mmol/L (3.6-5.0) L 07/05/17 06:04 Chloride 94.7 mmol/L (98-107) L 07/05/17 06:04 Carbon Dioxide 29 mmol/L (22-30) 07/05/17 06:04 Anion Gap 19 mmol/L 07/05/17 06:04 BUN 25 mg/dL (9-20) H 07/05/17 06:04 Creatinine 0.9 mg/dL (0.8-1.5) 07/05/17 06:04 Estimated GFR > 60 ml/min 07/05/17 06:04 BUN/Creatinine Ratio 28 % 07/05/17 06:04 Glucose 307 mg/dL (75-100) H 07/05/17 06:04 POC Glucose 275 (70-105) H 07/05/17 17:26 Calcium 8.7 mg/dL (8.4-10.2) 07/05/17 06:04 Total Creatine Kinase 59 units/L (55-170) 07/03/17 06:16 CK-MB (CK-2) 2.3 ng/mL (0.0-4.0) 07/03/17 06:16 CK-MB (CK-2) Rel Index 3.8 (0-4) 07/03/17 06:16 Troponin T 0.013 ng/mL (0.00-0.029) 07/03/17 06:16 NT-Pro-B Natriuret Pep 4105 pg/mL (0-900) H 07/02/17 17:04 Urine Color Yellow (Yellow) 07/02/17 22:24 Urine Turbidity Clear (Clear) 07/02/17 22:24 Urine pH 5.0 (5.0-7.0) 07/02/17 22:24 Ur Specific [place] 1.028 (1.003-1.030) 07/02/17 22:24 Urine Protein 100 mg/dl mg/dL (Negative) 07/02/17 22:24 Urine Glucose (UA) >=500 mg/dL (Negative) 07/02/17 22:24 Urine Ketones Neg mg/dL (Negative) 07/02/17 22:24 Urine Blood Neg (Negative) 07/02/17 22:24 Urine Nitrite Neg (Negative) 07/02/17 22:24 Urine Bilirubin Neg (Negative) 07/02/17 22:24 Urine Urobilinogen 2.0 mg/dL (<2.0) 07/02/17 22:24 Ur Leukocyte Esterase Neg (Negative) 07/02/17 22:24 Urine WBC (Auto) 4.0 /HPF (0.0-6.0) 07/02/17 22:24 Urine RBC (Auto) 3.0 /HPF (0.0-6.0) 07/02/17 22:24 U Epithel Cells (Auto) 1.0 /HPF (0-13.0) 07/02/17 22:24 Urine Mucus Few /HPF 07/02/17 22:24
[2017-07-06 06:21] LABS: Anion Gap 19 mmol/L; BUN/Creatinine Ratio 26; Blood Urea Nitrogen 29 mg/dL (9-20); Calcium 9.5 mg/dL (8.4-10.2); Carbon Dioxide 31 mmol/L (22-30); Glucose 205 mg/dL (75-100); Potassium 3.8 mmol/L (3.6-5.0); Sodium 141 mmol/L (137-145)
[2017-07-06] MEDS: LASIX IV SCH (07:28)
[2017-07-06] MEDS: NOVOLOG SUB-Q SCH ×6 (08:00→21:57)
[2017-07-06] MEDS: GLUCOTROL PO SCH ×2 (08:38→17:24)
[2017-07-06] MEDS: HALFPRIN EC PO SCH (09:40)
[2017-07-06] MEDS: PROSCAR PO SCH (09:40)
[2017-07-06] MEDS: VITAMIN D3 PO SCH (09:40)
[2017-07-06] MEDS: PEPCID PO SCH ×2 (09:40→21:56)
[2017-07-06] MEDS: TOPROL XL PO SCH (09:41)
[2017-07-06] MEDS: LOVENOX SUB-Q SCH (09:41)
[2017-07-06] MEDS: ZESTRIL PO SCH (09:42)
--- NOTE | 2017-07-06 11:15 | Progress Note ---
Assessment and Plan Acute systolic heart failure [facility]: no significant CAD, EF 40% Hypertension Diabetes mellitus Continue medical therapy for systolic heart failure. Conservative cardiac management. Subjective Date of service: 07/06/17 Interval history: Patient reports his breathing is better, wants to go home. Objective Vital Signs Temp Pulse Resp Resp BP BP Pulse Ox 07/06/17 09:42 109/75 07/06/17 09:41 109/75 07/06/17 05:35 97.5 F L 91 H 16 127/85 96 07/06/17 02:00 90 07/06/17 00:30 98.7 F 96 H 20 128/84 94 07/05/17 22:00 18 16 07/05/17 20:04 97.8 F 90 22 118/73 91 07/05/17 17:22 98.3 F 91 H 18 129/87 97 - Physical Examination General: No Apparent Distress HEENT: Positive: PERRL Cardiac: Positive: Reg Rate and Rhythm Lungs: Positive: Decreased Breath Sounds Neuro: Positive: Grossly Intact Extremities: Absent: edema - Labs and Meds Comprehensive Metabolic Panel 07/06/17 Range/Units 05:34 Sodium 141 (137-145) mmol/L Potassium 3.8 (3.6-5.0) mmol/L Chloride 95.0 L (98-107) mmol/L Carbon Dioxide 31 H (22-30) mmol/L BUN 29 H (9-20) mg/dL Creatinine 1.1 (0.8-1.5) mg/dL Glucose 205 H (75-100) mg/dL Calcium 9.5 (8.4-10.2) mg/dL - Imaging and Cardiology EKG: image reviewed
--- NOTE | 2017-07-06 16:13 | Progress Note ---
Assessment and Plan Assessment and plan: Acute on chronic CHF exacerbation -Cardiac cath was done, clean coronaries, ejection fraction of 40% -Patient is diuresed well and will hold the lasix - Cardiology consult appreciated DM type II uncontrolled - Continue on sliding scale insulin, blood glucose is still uncontrolled with home dose of glipizide Hypertension - well controlled with current regimen Shortness of breath - Pulmonary consulted DVT prophylaxis - Heparin Disposition - possible DC tomorrow History Interval history: Patient was seen and evaluated this morning, he is complaining dizziness. Hospitalist Physical - Physical exam Narrative exam: Not in cardiopulmonary distress. The patient appeared well nourished and normally developed. Vital signs as documented. Head exam is unremarkable. No scleral icterus . Neck is without jugular venous distension, thyromegaly, or carotid bruits. Lungs are clear to auscultation. Cardiac exam reveals regular rate and Rhythm. First and second heart sounds normal. No murmurs, rubs or gallops. Abdominal exam reveals normal bowel sounds, no masses, no organomegaly and no aortic enlargement. Extremities +2 pedal and pretibial edema. DISTRICT BRANCH MANAGER: Alert and oriented 3. No focal weakness. - Constitutional Vitals: Temp Pulse Resp BP Pulse Ox 97.5 F L 91 H 16 109/75 96 07/06/17 05:35 07/06/17 05:35 07/06/17 05:35 07/06/17 09:42 07/06/17 05:35 Results - Labs CBC & Chem 7: 07/04/17 07:05 07/06/17 05:34 Labs: Laboratory Last Values WBC 6.6 K/mm3 (4.5-11.0) 07/04/17 07:05 RBC 3.64 M/mm3 (3.65-5.03) L 07/04/17 07:05 Hgb 9.9 gm/dl (11.8-15.2) L 07/04/17 07:05 Hct 30.5 % (35.5-45.6) L 07/04/17 07:05 MCV 84 fl (84-94) 07/04/17 07:05 MCH 27 pg (28-32) L 07/04/17 07:05 MCHC 32 % (32-34) 07/04/17 07:05 RDW 18.1 % (13.2-15.2) H 07/04/17 07:05 Plt Count 415 K/mm3 (140-440) 07/04/17 07:05 Lymph % (Auto) 20.7 % (13.4-35.0) 07/04/17 07:05 [place] % (Auto) 13.0 % (0.0-7.3) H 07/04/17 07:05 Eos % (Auto) 2.0 % (0.0-4.3) 07/04/17 07:05 Baso % (Auto) 1.1 % (0.0-1.8) 07/04/17 07:05 Lymph # 1.4 K/mm3 (1.2-5.4) 07/04/17 07:05 [place] # 0.9 K/mm3 (0.0-0.8) H 07/04/17 07:05 Eos # 0.1 K/mm3 (0.0-0.4) 07/04/17 07:05 Baso # 0.1 K/mm3 (0.0-0.1) 07/04/17 07:05 Seg Neutrophils % 63.2 % (40.0-70.0) 07/04/17 07:05 Seg Neutrophils # 4.2 K/mm3 (1.8-7.7) 07/04/17 07:05 PT 14.3 Sec. (12.2-14.9) 07/03/17 06:16 INR 1.06 (0.87-1.13) 07/03/17 06:16 APTT 31.5 Sec. (24.2-36.6) 07/03/17 06:16 Sodium 141 mmol/L (137-145) 07/06/17 05:34 Potassium 3.8 mmol/L (3.6-5.0) 07/06/17 05:34 Chloride 95.0 mmol/L (98-107) L 07/06/17 05:34 Carbon Dioxide 31 mmol/L (22-30) H 07/06/17 05:34 Anion Gap 19 mmol/L 07/06/17 05:34 BUN 29 mg/dL (9-20) H 07/06/17 05:34 Creatinine 1.1 mg/dL (0.8-1.5) 07/06/17 05:34 Estimated GFR > 60 ml/min 07/06/17 05:34 BUN/Creatinine Ratio 26 % 07/06/17 05:34 Glucose 205 mg/dL (75-100) H 07/06/17 05:34 POC Glucose 256 (70-105) H 07/06/17 08:51 Calcium 9.5 mg/dL (8.4-10.2) 07/06/17 05:34 Total Creatine Kinase 59 units/L (55-170) 07/03/17 06:16 CK-MB (CK-2) 2.3 ng/mL (0.0-4.0) 07/03/17 06:16 CK-MB (CK-2) Rel Index 3.8 (0-4) 07/03/17 06:16 Troponin T 0.013 ng/mL (0.00-0.029) 07/03/17 06:16 NT-Pro-B Natriuret Pep 4105 pg/mL (0-900) H 07/02/17 17:04 Urine Color Yellow (Yellow) 07/02/17 22:24 Urine Turbidity Clear (Clear) 07/02/17 22:24 Urine pH 5.0 (5.0-7.0) 07/02/17 22:24 Ur Specific [place] 1.028 (1.003-1.030) 07/02/17 22:24 Urine Protein 100 mg/dl mg/dL (Negative) 07/02/17 22:24 Urine Glucose (UA) >=500 mg/dL (Negative) 07/02/17 22:24 Urine Ketones Neg mg/dL (Negative) 07/02/17 22:24 Urine Blood Neg (Negative) 07/02/17 22:24 Urine Nitrite Neg (Negative) 07/02/17 22:24 Urine Bilirubin Neg (Negative) 07/02/17 22:24 Urine Urobilinogen 2.0 mg/dL (<2.0) 07/02/17 22:24 Ur Leukocyte Esterase Neg (Negative) 07/02/17 22:24 Urine WBC (Auto) 4.0 /HPF (0.0-6.0) 07/02/17 22:24 Urine RBC (Auto) 3.0 /HPF (0.0-6.0) 07/02/17 22:24 U Epithel Cells (Auto) 1.0 /HPF (0-13.0) 07/02/17 22:24 Urine Mucus Few /HPF 07/02/17 22:24
[2017-07-07] MEDS: NOVOLOG SUB-Q SCH ×2 (11:20→13:35)
[2017-07-07] MEDS: VITAMIN D3 PO SCH (11:21)
[2017-07-07] MEDS: LOVENOX SUB-Q SCH (11:21)
[2017-07-07] MEDS: PEPCID PO SCH (11:22)
[2017-07-07] MEDS: HALFPRIN EC PO SCH (11:22)
[2017-07-07] MEDS: PROSCAR PO SCH (11:22)
[2017-07-07] MEDS: GLUCOTROL PO SCH (11:22)
[2017-07-07] MEDS: ZESTRIL PO SCH (11:23)
[2017-07-07] MEDS: TOPROL XL PO SCH (11:23)
--- NOTE | 2017-07-07 11:48 | Discharge Summary ---
Providers - Providers Date of Admission: 07/03/17 00:35 Date of discharge: 07/07/17 Attending physician: YUMIKO QURESHI MD 07/03/17 00:35 Consult to Physician [CONS] Routine Consulting Provider: REJI VALLE Reason For Exam: cp, chf Place consult to:: Dr. Valle Notified:: Dr. Valle Phone number called:: [phone] Was contact made?: Yes If yes, spoke with:: Dr. Valle Time called:: 06:10 07/03/17 08:01 Consult to Cardiac Rehabilitation [CONS] Routine Reason For Exam: Cardiac Rehab Evaluation 07/03/17 09:49 Consult to Physician [CONS] Routine Consulting Provider: THERESA GARCIA Reason For Exam: SOB Place consult to:: Dr. Thomas Notified:: Ivana SOUZA Phone number called:: Was contact made?: Yes If yes, spoke with:: Chey-Office Time called:: 09:57 Primary care physician: BONE WORKER Hospitalization Reason for admission: Acute and chronic systolic CHF exacerbation Condition: Stable Pertinent studies: Echo ejection fraction 40% Cardiac cath clean coronary arteries Hospital course: 77-year-old man with a history of hypertension, diabetes, CHF comes emergency room with complaints of shortness of breath, dyspnea on exertion, orthopnea and lower extremity edema 4 days. Also complaining of chest pain, located in the epigastric area, described as tightness, intermittent in nature, every 30 minutes, intensity 5/10, no radiation, cannot identify exacerbating or relieving factors. Patient is scheduled for cardiac cath today. Patient was diuresed adequately with IV Lasix, restarted with appropriate CHF medications. Other comorbid conditions were treated appropriately. Cardiac cath was done which showed clean coronary arteries. Patient is noncompliant and he said he may not take the Lasix at home. And also we gave him a choice of other diuretics but he said he is going to try Lasix low dose and gave him a prescription and discharged home. Patient is hemodynamically stable and was discharged. Patient's current symptoms and questions were addressed to the bedside. Disposition: - TO HOME OR SELFCARE Time spent for discharge: 31 minutes - Discharge Diagnoses (1) CHF exacerbation Status: Acute (2) Chest tightness Status: Acute (3) Diabetes Status: Chronic Qualifiers: Diabetes mellitus type: type 2 Diabetes mellitus complication status: with hyperglycemia Diabetes mellitus termite inspector insulin use: with termite inspector use Qualified Code(s): E11.65 - Type 2 diabetes mellitus with hyperglycemia; Z79.4 - moth exterminator (current) use of insulin; Z79.4 - FDC (current) use of insulin ; Z79.4 - FDC (current) use of insulin; Z79.4 - FDC (current) use of insulin (4) Hypertension Status: Acute (5) Shortness of breath Status: Acute Core Measure Documentation - Palliative Care Palliative Care/ Comfort Measures: Not Applicable - Core Measures Any of the following diagnoses?: heart failure - Heart Failure Discharge Requirements DINA/ARB for LVSD if EF <40%: Yes Beta ronald at discharge: Yes Exam - Physical Exam Narrative exam: Not in cardiopulmonary distress. The patient appeared well nourished and normally developed. Vital signs as documented. Head exam is unremarkable. No scleral icterus . Neck is without jugular venous distension, thyromegaly, or carotid bruits. Lungs are clear to auscultation. Cardiac exam reveals regular rate and Rhythm. First and second heart sounds normal. No murmurs, rubs or gallops. Abdominal exam reveals normal bowel sounds, no masses, no organomegaly and no aortic enlargement. Extremities trace pedal edema. WAX BLEACHER: Alert and oriented 3. No focal weakness. - Constitutional Vitals: Temp Pulse Resp BP Pulse Ox 98.4 F 103 H 18 126/73 96 07/07/17 08:53 07/07/17 11:23 07/07/17 08:53 07/07/17 11:23 07/07/17 08:53 Plan Diet: low cholesterol, low salt Follow up with: [facility] [Provider Group] - 7 Days [facility]IMARY [facility], [Primary Care Provider] - 3-5 Days Prescriptions: Furosemide [Lasix] 20 mg PO QDAY #30 tablet Potassium Chloride 5 meq PO QDAY #15 capsule.er
--- NOTE | 2017-07-07 11:58 | Progress Note ---
Assessment and Plan Systolic heart failure [facility]: no significant CAD, EF 40% Hypertension Diabetes mellitus Continue medical therapy for systolic heart failure. OK to discharge with medical therapy from cardiac perspective. Subjective Date of service: 07/07/17 Interval history: No cardiac complaints. Dyspnea is improved. Objective Vital Signs Temp Pulse Resp BP Pulse Ox 07/07/17 11:23 103 H 126/73 07/07/17 08:53 98.4 F 103 H 18 126/73 96 07/07/17 05:31 99.0 F 103 H 18 127/90 99 07/07/17 03:29 20 07/07/17 00:33 98.7 F 98 H 20 109/64 93 07/07/17 00:00 98 H 07/06/17 23:16 88 18 95 07/06/17 20:25 98.5 F 100 H 20 131/85 97 07/06/17 17:01 97.9 F 97 H 18 121/83 95 07/06/17 14:32 98.0 F 92 H 20 117/75 92 - Physical Examination General: No Apparent Distress HEENT: Positive: PERRL Neck: Positive: neck supple Cardiac: Positive: Reg Rate and Rhythm Lungs: Positive: clear to auscultation Neuro: Positive: Grossly Intact Extremities: Absent: edema - Imaging and Cardiology EKG: image reviewed
[2017-07-07 15:55] VITALS: BP 120/79
--- NOTE | 2017-07-12 09:54 | Cardiac Catherization Report ---
CARDIAC CATHETERIZATION INDICATION: The patient has a history of cardiomyopathy. The patient referred for diagnostic catheterization to exclude ischemia as a cause of cardiomyopathy. DESCRIPTION OF PROCEDURE: The patient was in usual sterile fashion. Access obtained to the right radial artery without complication. A 5-[place] sheath was placed in the right radial artery without any complication. A TIG catheter was used for the procedure. The TIG catheter was used to engage the right and left coronaries as well as perform the left ventriculogram. There were no complications. There was no significant blood loss. The catheter was withdrawn and hemostasis bandage was applied to the right radial artery without complication. There were no further complications post-procedure. CORONARY ANATOMY: 1. Left main: The left main is a large vessel and bifurcates into the left anterior descending and circumflex arteries. There is a mid 40% to 50% stenosis of the LAD, right after the first septal diagnostic cardiac sonographer. There is no other significant disease identified in the left anterior system. 2. The circumflex has no significant lesions identified. 3. Right coronary: The right coronary is large and dominant, has mild ectasia less than 20% throughout its system. There are no significant obstructive lesions identified. LEFT VENTRICULOGRAPHY: The end-diastolic filling pressures 25 to 30 mmHg. Upon pullback, there is no significant gradient across the aortic valve. The aortic pressure is 129/85. The estimated ejection fraction is approximately 40% with mild global hypokinesis. FINAL CONCLUSIONS: 1. Mild nonobstructive coronary disease. 2. Mild left systolic dysfunction with global hypokinesis and estimated ejection fraction of 40%. The above findings indicate nonischemic cardiomyopathy, likely as a result of longstanding hypertension. PLAN: 1. Medical optimization of blood pressure. 2. Statin therapy. 3. Diet and lifestyle modification with regular exercise. JOB# [id number] GP/NTS
== END 2017-07-07 16:00 | disposition home or self-care (01) | DRG 287 ==
LOC: ED 16:30 → 4A 07-03 00:35
PROVIDERS: ADMIT Internal Medicine; ATTEND Internal Medicine
PROC: 4A023N7 Measurement of Cardiac Sampling and Pressure, Left Heart, Percutaneous Approach (ICD-10-PCS; principal; 2017-07-03)
PROC: B2151ZZ Fluoroscopy of Left Heart using Low Osmolar Contrast (ICD-10-PCS; 2017-07-03)
PROC: B2111ZZ Fluoroscopy of Multiple Coronary Arteries using Low Osmolar Contrast (ICD-10-PCS; 2017-07-03)
DX: I11.0 Hypertensive heart disease with heart failure (principal); I50.23 Acute on chronic systolic (congestive) heart failure; E11.9 Type 2 diabetes mellitus without complications; Z82.49 Family history of ischemic heart disease and other diseases of the circulatory system; Z79.82 Long term (current) use of aspirin; Z79.899 Other long term (current) drug therapy
CPT/HCPCS: 36415; 71020; 80048; 81001; 82550; 82553; 82962; 83880; 84484; 85025; 85610; 85730; 87040; 93005; 93010; 93458; 94640; 94760; 96374; A9270-GY; C1887; C1894; J1644; J1650; J1815; J1940; J2250; J3010; Q9967

== ENCOUNTER 2020-08-23 16:32 | Emergency (ER) | payer MEDICARE ==
--- NOTE | 2020-08-23 18:41 | Event Note ---
ED Screening Note ED Screening Note: +SOB cannot lay flat +cough clear phlegm +BLE edema +abd distension +nausea no CP also fell three days ago pain in the bilateral humerus and shoulder PMHx CHF This initial assessment/diagnostic orders/clinical plan/treatment(s) is/are subject to change based on patients health status, clinical progression and re- assessment by fellow clinical providers in the ED. Further treatment and workup at subsequent clinical providers discretion. Patient/guardian urged not to elope from the ED as their condition may be serious if not clinically assessed and managed. Initial orders include: labs, XR, EKG
[2020-08-23 19:53] LABS: Basophils # (Auto) 0.1 K/mm3 (0.0-0.1); Basophils % (Auto) 1.2 % (0.0-1.8); Eosinophils # (Auto) 0.1 K/mm3 (0.0-0.4); Eosinophils % (Auto) 2.1 % (0.0-4.3); Hematocrit 42.8 % (35.5-45.6); Hemoglobin 13.9 gm/dl (11.8-15.2); Lymphocytes # (Auto) 1.3 K/mm3 (1.2-5.4); Lymphocytes % (Auto) 20.5 % (13.4-35.0); Mean Corpuscular HGB Conc 32 % (32-34); Mean Corpuscular Volume 91 fl (84-94); Monocytes # (Auto) 0.8 K/mm3 (0.0-0.8); Monocytes % (Auto) 13.2 % (0.0-7.3); Platelet Count 285 K/mm3 (140-440); Red Blood Count 4.71 M/mm3 (3.65-5.03); Red Cell Distribution Width 19.6 % (13.2-15.2)
--- NOTE | 2020-08-23 19:56 | XRay Report ---
BILATERAL SHOULDERS 6 VIEWS INDICATION / CLINICAL INFORMATION: Fall 3 days ago with bilateral shoulder pain. COMPARISON: None available. FINDINGS: BONES / JOINT(S): There are moderate degenerative changes involving both shoulders. There is no evide nce of fracture or subluxation. SOFT TISSUES: No significant abnormality. ADDITIONAL FINDINGS: None. Signer Name: Mansoor Cooper MD Signed: 08/23/2020 7:51 PM Workstation Name: [id number]
--- NOTE | 2020-08-23 20:00 | XRay Report ---
CHEST 2 VIEWS INDICATION / CLINICAL INFORMATION: Chest Pain. COMPARISON: 07/02/17. FINDINGS: SUPPORT DEVICES: None. HEART / MEDIASTINUM: There is mild cardiomegaly with a left ventricular configuration. LUNGS / PLEURA: There are diffusely increased interstitial lung markings compared to the prior study. No focal consolidation or effusion. No pneumothorax. ADDITIONAL FINDINGS: No significant additional findings. IMPRESSION: Diffuse nonspecific interstitial lung disease has increased. The findings may represent c hronic interstitial disease rather than interstitial edema. Signer Name: Mansoor Cooper MD Signed: 08/23/2020 7:55 PM Workstation Name: [id number]
[2020-08-23 20:06] LABS: INR 1.1 (0.87-1.13)
[2020-08-23 20:07] LABS: Partial Thromboplastin Time 31.7 Sec. (24.2-36.6)
[2020-08-23 20:13] LABS: Alanine Aminotransferase 19 units/L (7-56); Albumin 3.4 g/dL (3.9-5); BUN/Creatinine Ratio 24; Blood Urea Nitrogen 24 mg/dL (9-20); Calcium 9.2 mg/dL (8.4-10.2); Hemolysis Index 44
--- NOTE | 2020-08-23 20:19 | XRay Report ---
RIGHT HUMERUS 2 VIEWS INDICATION / CLINICAL INFORMATION: Fall 3 days ago with right arm pain. COMPARISON: None available. FINDINGS: BONES / JOINT(S): There are moderate degenerative changes involving the right shoulder. I see no evid ence of fracture or subluxation. SOFT TISSUES: No significant abnormality. ADDITIONAL FINDINGS: None. Signer Name: Mansoor Cooper MD Signed: 08/23/2020 8:15 PM Workstation Name: [id number]
[2020-08-23 23:52] VITALS: BP 149/104
== END 2020-08-24 02:01 | disposition left against medical advice (07) ==
LOC: ED 16:32
DX: R06.02 Shortness of breath (principal)
CPT/HCPCS: 36415; 71046; 80053; 83880; 84484; 85025; 85610; 85730; 93005